=== PATIENT | male | born 1965 | race Caucasian/White ===

== ENCOUNTER 2017-11-18 21:01 | Emergency (ER) | payer OTHER ==
[2017-11-18] MEDS ORDERED: DIPHTH,PERTUSS(ACELL),TET 0.5 ML DISP.SYRIN IM ONE (21:11)
--- NOTE | 2017-11-18 21:11 | PDOC ---
Rapid Medical Evaluation Time Seen by Provider: 11/18/17 21:06 Medical Evaluation: 11/18/17 21:06 I have performed a brief in-person evaluation of this patient. The patient presents with a chief complaint of: right 5th toe lac Pertinent physical exam findings: linear laceration to dorsum of right 5th toe I have ordered the following: Td, xray The patient will proceed to the ED for further evaluation. Discharge Disposition - Diagnosis Laceration - Referrals - Patient Instructions - Post Discharge Activity
[2017-11-18 21:12] VITALS: BP 124/36; PULSE 83; TEMP 98.8; BMI 27.4
--- NOTE | 2017-11-18 23:04 | PDOC ---
History of Present Illness - General Chief Complaint: Injury Stated Complaint: LACERATION Time Seen by Provider: 11/18/17 21:06 History Source: Patient Exam Limitations: No Limitations - History of Present Illness Initial Comments: 11/18/17 22:59 52-year-old male with past medical history of MS with stent on Plavix, hypertension, hyperlipidemia who presents emergency Department with laceration sustained to his right fifth toe with an angle wood grinder. Patient states he was watching the [employer] match when he put the angle wood grinder down not paying attention and it fell off the table while still spinning and struck him in the top of the fifth digit of the right foot. Patient applied heavy bandage to the wound and bleeding was controlled upon arrival. Past History - Past Medical History Allergies/Adverse Reactions: Allergies Allergy/AdvReac Type Severity Reaction Status Date / Time No Known Allergies Allergy Verified 11/18/17 21:09 Home Medications: Ambulatory Orders Aspirin [ASA -] 81 mg PO DAILY 11/18/17 Cholecalciferol (Vitamin D3) [Vitamin D3 -] 1,000 unit PO DAILY 11/18/17 Clopidogrel Bisulfate [Clopidogrel] 75 mg PO ASDIR 11/18/17 Ezetimibe 10 mg PO ASDIR 11/18/17 Levothyroxine [Synthroid -] 25 mcg PO DAILY 11/18/17 Lisinopril [Prinivil] 5 mg PO DAILY 11/18/17 Magnesium Oxide [Magnesium] 400 mg PO ASDIR 11/18/17 Metoprolol Succinate 50 mg PO ASDIR 11/18/17 Cardiac Disorders: Yes COPD: No - Surgical History Cardiac Surgery: Yes (stents) - Suicide/Smoking/Psychosocial Hx Smoking History: Current every day smoker Number of Cigarettes Smoked Daily: 10 Information on smoking cessation initiated: No Review of Systems - Review of Systems Able to Perform ROS?: Yes Is the patient limited Barbadian proficient: No Constitutional: No: Symptoms Reported HEENTM: No: Symptoms Reported Respiratory: No: Symptoms reported Cardiac (ROS): No: Symptoms Reported ABD/GI: No: Symptoms Reported : No: Symptoms Reported Musculoskeletal: No: Symptoms Reported Integumentary: Yes: See HPI Neurological: No: Symptoms reported Endocrine: No: Symptoms Reported *Physical Exam - Vital Signs Last Vital Signs Temp Pulse Resp BP Pulse Ox 98.8 F 83 18 124/36 98 11/18/17 21:10 11/18/17 21:10 11/18/17 21:10 11/18/17 21:10 11/18/17 21:10 - Physical Exam General Appearance: Yes: Appropriately Dressed. No: Apparent Distress Extremity: positive: Normal Capillary Refill, Normal Range of Motion, Other (3 cm linear laceration noted to the dorsum of the proximal phalanges of the fifth toe of the right foot. Subcentimeter abrasion noted distal to laceration.) Integumentary: positive: Other (see extremity exam) Neurologic: positive: Alert, Normal Response Procedures - Consent Consent obtained: Verbal - Laceration/Wound Repair Right Dorsal Foot 5th digit Wound Length: 2.6 to 5.0 cm Wound Explored: clean Wound's Depth, Shape: superficial, linear Irrigated w/ Saline: Yes Betadine Prep: Yes Anesthesia: 1% Lidocaine Amount of Anesthetic (ccs): 4 Wound Debrided: minimal Wound Repaired With: Sutures Suture Size/Type: 5:0 Number of Deep Layer Sutures: 5 Sterile Dressing Applied: Yes Splint Applied: No (Hard soul shoe provided) Progress: 11/18/17 23:06 patient tolerated well ED Treatment Course - RADIOLOGY Radiology Studies Ordered: Category Date Time Status FOOT-RIGHT [RAD] Stat Radiology 11/18/17 21:11 Taken - Medications Given in the ED: ED Medications Discontinued Medications Generic Name Dose Route Start Last Admin Trade Name Freq PRN Reason Stop Dose Admin Diphtheria/Tetanus/Acell Pertussis 0.5 ml 11/18/17 21:11 11/18/17 22:37 Boostrix - IM 11/18/17 21:12 0.5 ml .ONCE ONE Administration Medical Decision Making - Medical Decision Making 11/18/17 23:06 A/P: 52-year-old male on Plavix with laceration sustained to fifth digit of the right foot 3 cm linear superficial laceration noted to the dorsal aspect of the proximal phalanx of the fifth digit of the right foot Full sensation noted distal to injury Subcentimeter superficial abrasion noted distal to laceration Given nature of the injury with an angle wood grinder I will perform an x-ray to evaluate for bone involvement. Tetanus X-rays as read by me: No fractures, dislocations or deformity noted Laceration repair-see procedure note for details Discharge home I discussed the physical exam findings, ancillary test results and final diagnoses with the patient. I answered all of the patient's questions. The patient was satisfied with the care received and felt comfortable with the discharge plan and treatment plan. The patient will call his doctor within 96 hours to arrange follow-up and will return to the Emergency Department with any new, persistent or worsening symptoms. *DC/Admit/Observation/Transfer Diagnosis at time of Disposition: Laceration - Discharge Dispostion Disposition: HOME Condition at time of disposition: Stable Decision to Admit order: No - Referrals Referrals: Raman Reyes MD [Primary Care Provider] - - Patient Instructions Additional Instructions: Rest, elevate, avoid strenuous activity or heavy lifting until sutures are removed Leave dressing on for the next 24 hours, Then may remove dressing gently and wash area with soap and water. Reapply bacitracin ointment and dressing daily for the next 5 days On day #6 keep the wound protected and cover as needed until sutures are removed allowing wound to start to dry May use Tylenol or Motrin for pain relief Suture removal in : 7-10 Days - Post Discharge Activity
== END 2017-11-18 23:14 | disposition home or self-care (01) ==
LOC: JERFT 21:01 → JER 21:01 → JERFT 23:14
PROC: 3E0234Z Introduction of Serum, Toxoid and Vaccine into Muscle, Percutaneous Approach (ICD-10-PCS; principal; 2017-11-18)
PROC: 0HQMXZZ Repair Right Foot Skin, External Approach (ICD-10-PCS; 2017-11-18)
DX: S91.114A Laceration without foreign body of right lesser toe(s) without damage to nail, initial encounter (principal); W29.8XXA Contact with other powered hand tools and household machinery, initial encounter; Y93.89 Activity, other specified; Y92.038 Other place in apartment as the place of occurrence of the external cause; Y99.8 Other external cause status; I25.2 Old myocardial infarction; I25.10 Atherosclerotic heart disease of native coronary artery without angina pectoris; I10 Essential (primary) hypertension; Z95.5 Presence of coronary angioplasty implant and graft; Z79.01 Long term (current) use of anticoagulants; E78.00 Pure hypercholesterolemia, unspecified; E78.5 Hyperlipidemia, unspecified; F17.210 Nicotine dependence, cigarettes, uncomplicated
CPT/HCPCS: 73630-TC-RT-FY; 90715; 99282-25